=== PATIENT | male | born 1960 | race Caucasian/White ===

== ENCOUNTER → 2023-10-24 07:29 | Outpatient (REF) | payer BC, SELFPAY | LOC: HWRAD 07:29 | PROVIDERS: ATTENDING PHYSICIAN Nurse Practitioner Family | DX: K75.81 Nonalcoholic steatohepatitis (NASH) (principal) | CPT/HCPCS: 76700 ==

== ENCOUNTER → 2025-08-26 15:42 | Outpatient (REF) | payer BC, SELFPAY | LOC: HWRCS 15:42 | PROVIDERS: ATTENDING PHYSICIAN Internal Medicine; FAMILY PHYSICIAN Nurse Practitioner Family | DX: I48.0 Paroxysmal atrial fibrillation (principal); R07.9 Chest pain, unspecified | CPT/HCPCS: 93306 ==

== ENCOUNTER → 2025-08-28 14:27 | Outpatient (REF) | payer BC, SELFPAY | LOC: RCS 14:27 | PROVIDERS: ATTENDING PHYSICIAN Internal Medicine | DX: I48.0 Paroxysmal atrial fibrillation (principal); R07.9 Chest pain, unspecified | CPT/HCPCS: 93017 ==

== ENCOUNTER 2025-09-06 07:46 | Day surgery (SDC) | payer BC, SELFPAY ==
[2025-09-06] VITALS (10 sets, daily range): BP systolic 146–162; BP diastolic 78–107; BMI 30.3
[2025-09-06] MEDS: LOW STRENGTH ASPIRIN 243 MG PO (08:51)
[2025-09-06 09:08] LABS: Glucose - Point of Care 115 mg/dl (70-99)
--- NOTE | 2025-09-06 11:49 | ITS.CL.PN ---
Addendum entered and electronically signed by Woody Colin MD 09/06/25 11:55:
Copy to: Dr. Antonio Sorenson MD (manager wellness); Dr. Joe Hernandez MD (PCP)
Original Note:
[employer] - Procedure Note
Procedure
Procedure Note:
CARDIAC CATHETERIZATION REPORT
Date of Procedure: 09/06/2025
Referring: Dr. Antonio Sorenson MD
Indication: Atypical angina, positive cardiac stress test
PROCEDURE(S)
1. left heart catheterization
2. coronary angiography
ACCESS: 6F right radial artery (closure: radial band)
CATHETERS
1. 6F JR4
2. 6F JL4
MODERATE SEDATION: 25 minutes of moderate sedation was utilized. An independent medical office specialist was present to assist with and help manage the patient's level of consciousness and physiologic status.
HEMODYNAMIC DATA
LV 147/11 (EDP 21) mmHg
AO 130/77 (mean 102) mmHg
CORONARY ANGIOGRAPHY
Dominance: Right
LM: Large, normal
LAD: Large vessel giving rise to a large D1 and wrapping around the apex. There are mild luminal irregularities only.
LCx: Large vessel giving rise to a small OM1, moderate caliber OM 2, large OM 3, and several small LPL branches. There are mild luminal irregularities only.
RCA: Large vessel giving rise to a large RPDA and large RPL branch. There are trivial luminal irregularities only.
RADIATION: dose 395 mGy; DAP 30.4 Gy*cm2; fluoroscopy time 2.3 min
CONCLUSIONS
1. Mildly elevated LV filling pressure and mild gradient on pullback across the aortic valve consistent with mild
2. Nonobstructive coronary artery disease in a right dominant system as described
RECOMMENDATIONS
1. Primary prevention of coronary artery disease
2. Workup for etiology of atypical anginal symptoms not related to epicardial coronary artery disease
Copy to: Dr. Antonio Sorenson MD (manager wellness); [ ] (PCP)
Signed: Woody Colin MD, PhD
== END 2025-09-06 15:15 | disposition home or self-care (01) ==
LOC: CATH 07:46
PROVIDERS: ATTENDING PHYSICIAN Student in an Organized Health Care Education/Training Program; OTHER PHYSICIAN Internal Medicine
DX: I25.119 Atherosclerotic heart disease of native coronary artery with unspecified angina pectoris (principal); I10 Essential (primary) hypertension; Z79.01 Long term (current) use of anticoagulants; Z79.899 Other long term (current) drug therapy; Z79.84 Long term (current) use of oral hypoglycemic drugs; I49.1 Atrial premature depolarization; I48.0 Paroxysmal atrial fibrillation
CPT/HCPCS: 99152; 99153; 82962; 93458; C1769; Q9967